=== PATIENT | female | born 2000 | race Caucasian/White ===

== ENCOUNTER 2023-01-21 12:17 | Emergency (ER) | payer OTHER, SELFPAY ==
--- NOTE | 2023-01-21 12:27 | ED_ITS ---
HPI - General Adult General Chief complaint: Psychiatric Symptoms Stated complaint: Crisis Time Seen by Provider: 01/21/23 13:00 Source: patient Mode of arrival: ambulatory History of Present Illness HPI narrative: 22-year-old female who presents with feelings of being overwhelmed, stating that she is very depressed is been on Cymbalta since approximately and has recently completed her college degree and was working in psychology and then began feeling worse. Patient has significant concerns regarding titration off of Cymbalta and restarting another medication, she does suffer from anxiety as well. Related Data Home Medications Medication Instructions Recorded Confirmed duloxetine 20 mg capsule,delayed 20 mg PO DAILY 01/21/23 01/21/23 release Allergies Allergy/AdvReac Type Severity Reaction Status Date / Time No Known Allergies Allergy Verified 01/21/23 12:30 Review of Systems Review of Systems: Pertinent positives and negatives as stated in HPI PMFSH Past Medical History Source: nursing notes reviewed Social History Social History Advance Directives: No Advance Directives Information Provided: No Physical Exam ED Vital Signs: Vital Signs - 24 hr 01/21/23 12:31 Temperature 98 F Pulse Rate 84 Respiratory Rate 20 Blood Pressure 136/83 Pulse Oximetry 98 Oxygen Delivery Method Room Air BMI result Body Mass Index 31.7 VITAL SIGNS: Reviewed. GENERAL: Well developed, well nourished, in no acute distress. HEAD: Normocephalic/atraumatic EYES: PERRLA, EOMI EARS: Ext canals without abnormality NOSE: Nares patent bilateral OROPHARYNX: no oral lesions noted, posterior pharynx clear NECK: Supple, no adenopathy LUNGS: Normal breath sounds. No adventitious sounds or accessory muscle use. SpO2<98> CARDIOVASCULAR: Regular rate and rhythm without noted murmurs ABDOMEN: Soft, non-tender, non-distended with bowel sounds. MUSCULOSKELETAL: No tenderness, deformities, or effusions noted on gross inspection. EXTREMITIES: No cyanosis, clubbing or edema. SKIN: Inspection of the skin reveals no rashes NEUROLOGIC: Alert and oriented x 4. Strength and sensation to light touch were grossly intact x 4, cranial nerves 2-12 PSYCH: Tearful, depressed affect. Course Course Course Narrative: This is an RME: Additional HPI, ROS, PE not included below will be deferred to primary provider. 22 year old female reports one month of feeling hopeless that began after starting a new job. She reports self harm. No homicidal ideations. Follows regularly with a therapist and provider. Takes cymbalta as prescribed. Plan: labs, urine Reevaluation(s) Reevaluation #1: Respite bed has been found and patient will be discharged at 20:00. Time: 19:28 Medications Administered Discontinued Medications Generic Name Dose Route Start Last Admin Trade Name Salvador PRN Reason Stop Dose Admin Hydroxyzine HCl 25 mg 01/21/23 14:15 01/21/23 15:01 Hydroxyzine Hcl 25 Mg Tablet PO 01/21/23 14:16 25 mg ONCE ONE Administration Nicotine 7 mg 01/21/23 14:08 01/21/23 15:01 Nicotine 7 Mg Patch.Td24 TRANSDERMA 01/21/23 14:09 7 mg ONCE ONE Administration Medical Decision Making Medical Decision Making [facility] Narrative: 22-year-old female with history and clinical presentation most consistent with acute on chronic exacerbation of underlying anxiety and depression with feelings of being overwhelmed. Patient is otherwise medically cleared and I have fully reviewed all investigations which do not demonstrate any systemic infection is there is no leukocytosis or left shift, no anemia or thrombocytopenia. Chemistry indices are negative for electrolyte or liver enzyme abnormalities, there is no KLEVER. Urinalysis is negative for UTI or hematuria, urine test is negative, toxicology is positive for endorsed use of marijuana for her chronic condition of interstitial cystitis. Care team has evaluated the patient determined that patient is safe for discharge to a respite bed. Patient is aware of all results and the plan for respite bed placement. Patient placed in physician observation because the patient needed more time for placement in a respite bed. At the time observation was started the patient's vital signs were stable, patient is alert and oriented, neuro: Nonfocal, CV RRR, lungs clear Differential Diagnosis Differential Diagnoses: The differential diagnosis associated with the presentation includes Please see the discussion above Admission/Observation Consideration of admission/observation: Escalation of care including admission/ observation considered Please see the discussion above Consult Healthcare Provider Management of the patient was discussed with: Supervisor Fishing Please see the discussion above Lab Data [facility] Lab Attestation statement: I reviewed the patient's lab results. Please see the discussion above 01/21/23 13:03 01/21/23 13:03 Labs: Lab Results 01/21/23 01/21/23 01/21/23 Range/Units 12:51 12:51 12:51 WBC (4.8-10.8) X10*3/uL RBC (4.20-5.50) X10*6/uL Hgb (12.0-16.0) g/dl Hct (37.0-47.0) % MCV (80.0-98.0) fL MCH (27.0-33.0) pg MCHC (31.0-35.0) g/dl RDW (11.0-16.0) % Plt Count (160-400) X10*3/uL MPV (9.4-12.3) fL Immature Gran % (Auto) (0.0-0.4) % Neut % (Auto) (45-73) % Lymph % (Auto) (20-40) % Caswell % (Auto) (2-11) % Eos % (Auto) (0-4) % Baso % (Auto) (0-2) % Lymph # (Auto) (1.2-4.9) X10*3/uL Caswell # (Auto) (0.1-1.2) X10*3/uL Eos # (Auto) (0.0-0.4) X10*3/uL Baso # (Auto) (0.0-0.2) X10*3/uL Abs Immat Gran (auto) (0.00-0.03) X10*3/uL Absolute Neuts (auto) (2.0-8.3) x10*3/uL Absolute Nucleated RBC (0.0-0.012) X10*3/uL Nucleated RBC % (auto) (0.0-0.2) /100WBC Sodium (135-145) mmol/L Potassium (3.3-5.1) mmol/L Chloride (96-108) mmol/L Carbon Dioxide (22-29) mmol/L Anion Gap (12-20) BUN (9-16) mg/dL Creatinine (0.5-1.4) mg/dL Estim Creat Clear Calc Estimated GFR Random Glucose (60-115) mg/dL Calcium (8.4-10.2) mg/dL Magnesium (1.6-2.6) mg/dL Total Bilirubin (0.0-1.0) mg/dL AST (5-31) U/L ALT (0-31) U/L Alkaline Phosphatase (39-117) U/L Total Protein (6.5-8.0) g/dL Albumin (3.5-5.0) g/dL Urine Color Yellow Urine Appearance Clear Urine pH 7.5 (5.0-9.0) Ur Specific [place] <= 1.005 (1.005-1.025) Urine Protein Negative (Neg-Trace) mg/dL Urine Glucose (UA) Negative (Negative) mg/dL Urine Ketones Negative (Negative) mg/dL Urine Blood Negative (Negative) Urine Nitrite Negative (Negative) Ur Leukocyte Esterase Negative (Negative) Urine Test NEGATIVE (NEGATIVE) Salicylates (15-30) mg/dL Urine Opiates Screen Not Detected (Not Detect) Urine Fentanyl Screen Not Detected (Not Detect) Acetaminophen (<30) mcg/mL Ur Barbiturates Screen Not Detected (Not Detect) Ur Phencyclidine Scrn Not Detected (Not Detect) Ur Amphetamines Screen Not Detected (Not Detect) U Benzodiazepines Scrn Not Detected (Not Detect) Urine Cocaine Screen Not Detected (Not Detect) U Marijuana (THC) Screen POSITIVE H (Not Detect) Ethyl Alcohol mg/dL 01/21/23 01/21/23 01/21/23 Range/Units 13:03 13:03 13:03 WBC 8.6 (4.8-10.8) X10*3/uL RBC 4.78 (4.20-5.50) X10*6/uL Hgb 13.7 (12.0-16.0) g/dl Hct 41.4 (37.0-47.0) % MCV 86.6 (80.0-98.0) fL MCH 28.7 (27.0-33.0) pg MCHC 33.1 (31.0-35.0) g/dl RDW 11.9 (11.0-16.0) % Plt Count 234 (160-400) X10*3/uL MPV 11.5 (9.4-12.3) fL Immature Gran % (Auto) 0.7 H (0.0-0.4) % Neut % (Auto) 68.8 (45-73) % Lymph % (Auto) 22.7 (20-40) % Caswell % (Auto) 6.1 (2-11) % Eos % (Auto) 1.2 (0-4) % Baso % (Auto) 0.5 (0-2) % Lymph # (Auto) 2.0 (1.2-4.9) X10*3/uL Caswell # (Auto) 0.5 (0.1-1.2) X10*3/uL Eos # (Auto) 0.1 (0.0-0.4) X10*3/uL Baso # (Auto) 0.0 (0.0-0.2) X10*3/uL Abs Immat Gran (auto) 0.06 H (0.00-0.03) X10*3/uL Absolute Neuts (auto) 5.9 (2.0-8.3) x10*3/uL Absolute Nucleated RBC 0.000 (0.0-0.012) X10*3/uL Nucleated RBC % (auto) 0.0 (0.0-0.2) /100WBC Sodium 139 (135-145) mmol/L Potassium 4.0 (3.3-5.1) mmol/L Chloride 109 H (96-108) mmol/L Carbon Dioxide 23 (22-29) mmol/L Anion Gap 11 L (12-20) BUN 7 L (9-16) mg/dL Creatinine 0.65 (0.5-1.4) mg/dL Estim Creat Clear Calc 125.7 Estimated GFR > 60 Random Glucose 95 (60-115) mg/dL Calcium 10.0 (8.4-10.2) mg/dL Magnesium 1.9 (1.6-2.6) mg/dL Total Bilirubin 0.4 (0.0-1.0) mg/dL AST 15 (5-31) U/L ALT 12 (0-31) U/L Alkaline Phosphatase 61 (39-117) U/L Total Protein 7.3 (6.5-8.0) g/dL Albumin 4.5 (3.5-5.0) g/dL Urine Color Urine Appearance Urine pH (5.0-9.0) Ur Specific [place] (1.005-1.025) Urine Protein (Neg-Trace) mg/dL Urine Glucose (UA) (Negative) mg/dL Urine Ketones (Negative) mg/dL Urine Blood (Negative) Urine Nitrite (Negative) Ur Leukocyte Esterase (Negative) Urine Test (NEGATIVE) Salicylates < 5.0 L (15-30) mg/dL Urine Opiates Screen (Not Detect) Urine Fentanyl Screen (Not Detect) Acetaminophen < 17 (<30) mcg/mL Ur Barbiturates Screen (Not Detect) Ur Phencyclidine Scrn (Not Detect) Ur Amphetamines Screen (Not Detect) U Benzodiazepines Scrn (Not Detect) Urine Cocaine Screen (Not Detect) U Marijuana (THC) Screen (Not Detect) Ethyl Alcohol < 10 mg/dL External Record Review External record reviewed: Outpatient record and Prior outpatient labs Discharge Plan Discharge Clinical Impression: Depression, Anxiety Patient Disposition: Xfer to Respite Facility Instructions: Anxiety (ED), Depression (ED) Additional Instructions: 1. Resume all home medications as prescribed. Return to the ER for any worsening symptoms. Prescriptions: No Action duloxetine 20 mg Capsule,Delayed Release(Dr/Ec) 20 mg PO DAILY Interventions: [place]-Suicide Risk Severity Scale Last Done: 01/21/23 16:23
[2023-01-21 12:31] VITALS: BP 136/83; PULSE 84; RESP 20; TEMP 36.6; O2SAT 98; BMI 31.7
[2023-01-21 13:02] LABS: Appearance Urine Clear; Color Urine Yellow; Glucose Urine UA Negative (Negative); Leukocyte Esterase Urine Negative (Negative); Nitrite Urine Negative (Negative); PH 7.5 (5.0-9.0); Specific Gravity - Urine <= 1.005 (1.005-1.025); Urine Blood Negative (Negative); Urine Ketones Negative (Negative); Urine Protein Negative (Neg-Trace)
[2023-01-21 13:03] LABS: UPreg QC Valid YES; Urine Pregnancy NEGATIVE (NEGATIVE)
[2023-01-21 13:09] LABS: MANUAL DIFF FLAG NO
[2023-01-21 13:10] LABS: Amphetamine Screen Urine Not Detected (Not Detect); Barbiturates, Urine Not Detected (Not Detect); Benzodiazepines Screen Urine Not Detected (Not Detect); Cannabinoid Screen Urine POSITIVE (Not Detect); Cocaine Screen Urine Not Detected (Not Detect); Fentanyl, urine Not Detected (Not Detect); Opiate Screen Urine Not Detected (Not Detect); Phencyclidine Screen Urine Not Detected (Not Detect)
[2023-01-21 13:17] LABS: Basophils Percent Auto 0.5 % (0-2); Eosinophils Absolute Auto 0.1 X10*3/uL (0.0-0.4); Eosinophils Percent Auto 1.2 % (0-4); Hematocrit 41.4 % (37.0-47.0); Hemoglobin 13.7 g/dl (12.0-16.0); Imm Gran Abs Auto 0.06 X10*3/uL (0.00-0.03); Imm Gran Pct Auto 0.7 % (0.0-0.4); Lymphocytes Percent Auto 22.7 % (20-40); Mean Corpuscular HGB Conc 33.1 g/dl (31.0-35.0); Mean Corpuscular Hemoglobin 28.7 pg (27.0-33.0); Mean Corpuscular Volume 86.6 fL (80.0-98.0); Mean Platelet Volume 11.5 fL (9.4-12.3); Monocytes Absolute Auto 0.5 X10*3/uL (0.1-1.2); Monocytes Percent Auto 6.1 % (2-11); Neutrophils Absolute Auto 5.9 x10*3/uL (2.0-8.3); Neutrophils Percent Auto 68.8 % (45-73); Platelet Count 234 X10*3/uL (160-400); Red Blood Count 4.78 X10*6/uL (4.20-5.50); Red Cell Distribution Width 11.9 % (11.0-16.0); White Blood Count 8.6 X10*3/uL (4.8-10.8)
[2023-01-21 13:26] LABS: Alanine Aminotransferase 12 U/L (0-31); Albumin Level 4.5 g/dL (3.5-5.0); Alkaline Phosphatase 61 U/L (39-117); Anion Gap 11 (12-20); Aspartate Amino Transferase 15 U/L (5-31); Bilirubin Total 0.4 mg/dL (0.0-1.0); Blood Urea Nitrogen 7 mg/dL (9-16); Carbon Dioxide 23 mmol/L (22-29); Chloride 109 mmol/L (96-108); Creatinine Clr Calc Pharmacy 125.7; Estimated Glomerular Filt Rate > 60; Ethanol < 10 mg/dL; Glucose Random 95 mg/dL (60-115); Magnesium 1.9 mg/dL (1.6-2.6); Sodium 139 mmol/L (135-145); Total Protein 7.3 g/dL (6.5-8.0)
[2023-01-21 13:56] LABS: Acetaminophen LAB < 17 mcg/mL (<30); Salicylate < 5.0 mg/dL (15-30)
--- OUTSIDE RECORDS SUMMARY | 2023-01-21 14:09 | XMS_ITS | Continuity of Care Document ---
Author Name Unknown Organization [facility] ter Address [address] [place] [id number] Care Team Providers Care Manager English Name Role Phone Madelin MCFARLANE, Roselia Quesada Primary Care Physician [place] [facility] [place]05[place] - 11/05/[address] [address]- [facility] Encounter Diagnosis Abdominal pain(Final) - 11/05/19 Discharge Disposition: A-D/C Home Attending Physician: Tiffany Escobar MD Admitting Physician: Tiffany Escobar MD Referring Physician: Not on Staff, Referring MD Allergies, Adverse Reactions, Alerts Substance Reaction Severity Status Benadryl Palpitations Persistent Mild Active Medications Flagyl 500 mg oral tablet 1 tablet = 500 mg, By Mouth, Every 12 hours, for 7 days, # 14 tablet, 0 Refills, Acute 11/12/19 4:06:00 EDT, 11/05/19 4:06:00 EDT, Tablet, [id number] Start Date: 11/05/19 Stop Date: 11/12/19 Status: Ordered Flonase 1 sprays, Daily, 0 Refills, Maintenance, 05/02/16 21:35:33 Start Date: 05/02/16 Status: Ordered ibuprofen 400 mg oral tablet 400 mg, 1, tablet, By Mouth, Every 6 hours, PRN, # 30 tablet, Refills 0, Tot. Refills 0, Maintenance, Headache, 02/23/16 22:35:51, Print Requisition Start Date: 02/23/16 Status: Ordered Zofran 4 mg oral tablet 1 tablet = 4 mg, By Mouth, Every 8 hours, PRN as needed for nausea/vomiting, # 10 tablet, 0 Refills, Maintenance, 11/05/19 4:05:00 EDT, Tablet, [id number] Start Date: 11/05/19 Status: Ordered Zofran 4 mg oral tablet 1 tablet = 4 mg, By Mouth, Every 8 hours, PRN as needed for nausea/vomiting, # 10 tablet, 0 Refills, Maintenance, 02/23/16 22:36:06, Tablet Start Date: 02/23/16 Status: Ordered Results Orders for Microbiology Reports Name Date Wet Prep 11/05/19 Microbiology Reports TEST:Wet Prep STATUS:Auth (Verified) BODY SITE: SOURCE:VAGINA COLLECTED DATE/TIME:11/05/19 3:45 AM Wet Prep SPECIMEN DESCRIPTION : VAGINAL SPECIMEN SPECIAL REQUESTS : NONE DIRECT EXAM : 2+ WHITE BLOOD CELLS NO TRICHOMONAS,YEAST,OR CLUE CELLS OBSERVED REPORT STATUS : FINAL 11/05/2019 Vital Signs Most recent to oldest [Reference Range]: 1 2 Oxygen Saturation [94-100 %] 99 % (11/05/19 4:33 AM) 100 % (11/05/19 1:46 AM) Pulse Rate [55-90 bpm] 80 bpm (11/05/19 4:33 AM) 94 bpm *H* (11/05/19 1:46 AM) Blood Pressure [90-138/55-84 mm Hg] 104/ 61mm Hg (11/05/19 4:33 AM) 130/69mm Hg (11/05/19 1:46 AM) Respiratory Rate [16-30 br/min] 18 br/mi n (11/05/19 4:33 AM) 18 br/min (11/05/19 1:46 AM) Temperature [96.8-100.4 DegF] 98.2 DegF (11/05/19 4:33 AM) 98.6 DegF (11/05/19 1:46 AM) Mode of Delivery (Oxygen) Room air (11/05/19 4:33 AM) Room air (11/05/19 1:46 AM) Blood pressure sites Arm, left (11/05/19 4:33 AM) Arm, right (11/05/19 1:46 AM) Temperature Route Oral (11/05/19 4:33 AM) Oral (11/05/19 1:46 AM) Social History Social History Type Response Smoking Status Never smoker entered on: 05/02/16 Sex
--- OUTSIDE RECORDS SUMMARY | 2023-01-21 14:09 | XMS_ITS | Continuity of Care Document ---
Author Name Unknown Organization [facility] ter Address [address] [place] [id number]- Care Team Providers Care Punch Box Tender Name Role Phone Madelin MCFARLANE, Roselia Quesada Primary Care Physician [phone] Encounter [facility] [place] Date(s): 08/02/19 - 08/02/[address] [address]- [facility] Encounter Diagnosis Mononucleosis(Final) - 08/02/19 Discharge Disposition: A-D/C Home Attending Physician: Malgorzata Bailey MD Admitting Physician: Malgorzata Bailey MD Referring Physician: Not on Staff, Referring MD Allergies, Adverse Reactions, Alerts Substance Reaction Severity Status Benadryl Palpitations Persistent Mild Active Medications Flonase 1 sprays, Daily, 0 Refills, Maintenance, [...] Results Orders for Microbiology Reports Name Date Group A Strep Screen and Culture 08/02/19 Microbiology Reports TEST:Group A Strep Screen and Culture STATUS:Unauthenticated BODY SITE: SOURCE:THROAT COLLECTED DATE/TIME:08/02/19 5:16 PM Group A Strep Screen and Culture SPECIMEN DESCRIPTION : THROAT SWAB SPECIAL REQUESTS : NONE DIRECT EXAM : RAPID GROUP A RESULT IS NEGATIVE, REFER TO CULTURE RESULT. REPORT STATUS : PRELIMINARY REPORT Radiology Reports * Exam Date Time Procedure Performing Provider Status 08/02/19 4:58 PM Chest 2 Views Frontal and Lat Galdino Gutierrez; Auth (Verified) Notes: (Chest 2 Views Frontal and Lat) Reason For Exam: Shortness of Breath, Fever;Other: RESULT: Chest 2 Views Frontal and Lat Chest 2 Views Frontal and Lat 1 Refer to EMR; Reason: Other:; Shortness of Breath, Fever; Clinical Question(s): Pneumonia; Hx of Present Illness: PT reports sore throat on saturday, went to urgent care, diagnosed with sore throat, RX'd amoxicillin. Now reports post nasal drip, productive cough, yellow clear phlegm, I feel like i cant take a deep breath and it hurts to . Denies fevers or chills.; Other Objective Findings: CA Ox4. COMPARISON: X-ray from 03/30/2019. FINDINGS: LINES AND TUBES: None. LUNGS AND PLEURA: Clear lungs. Normal pulmonary vascularity. No pleural effusion. No pneumothorax. HEART, MEDIASTINUM AND ANNABEL: Heart is normal in size. Normal mediastinal and hilar contour. BONES AND SOFT TISSUES: No acute abnormality. IMPRESSION: No acute abnormality. WSN: [id number] Ordering Physician: Maurizio Wilkins Dictated By: Stevo Godfrey MD Dictated Date/Time: 08/02/19 5:13 pm Reviewed By: Stevo Godfrey MD Signed By: Stevo Godfrey MD Signed Date/Time: 08/02/19 5:13 pm Transcribed By: BROCK Transcribed Date/Time: 08/02/19 5:13 pm Vital Signs Most recent to oldest [Reference Range]: 1 2 3 Oxygen Saturation [94-100 %] 98 % (08/02/19 8:40 PM) 100 % (08/02/19 3:27 PM) 99 % (08/02/19 3:24 PM) Pulse Rate [55-90 bpm] 93 bpm *H* (08/02/19 8:40 PM) 94 bpm *H* (08/02/19 3:27 PM) 106 bpm *H* (08/02/19 3:24 PM) Blood Pressure [90-138/55-84 mm Hg] 116/61mm Hg (08/02/19 8:40 PM) 133/64mm Hg (08/02/19 3:27 PM) Respiratory Rate [16-30 br/min] 18 br/min (08/02/19 8:40 PM) 18 br/min (08/02/19 3:27 PM) Temperature [96.8-100.4 DegF] 98.2 DegF (08/02/19 8:40 PM) 98.6 DegF (08/02/19 3:27 PM) Mode of Delivery (Oxygen) Room air (08/02/19 8:40 PM) Room air (08/02/19 3:27 PM) Room air (08/02/19 3:24 PM) Blood pressure sites Arm, right (08/02/19 8:40 PM) Arm, left (08/02/19 3:27 PM) Temperature Route Oral (08/02/19 8:40 PM) Oral (08/02/19 3:27 PM) Social History Social History Type Response Smoking Status Never smoker entered on: 05/02/16 Sex
[2023-01-21] MEDS: hydrOXYzine HCL 25 MG TABLET PO (15:01)
[2023-01-21] MEDS: Nicotine 7 MG PATCH.TD24 TRANSDERMA (15:01)
--- NOTE | 2023-01-21 16:32 | PC.NURSE ---
patient sitting in room, has remained calm and cooperative, will engage with staff.
--- NOTE | 2023-01-21 17:33 | PC.NURSE ---
patient has visitor
== END 2023-01-21 19:39 | disposition home or self-care (01) ==
PROVIDERS: Physician Assistant; Emergency Provider Student in an Organized Health Care Education/Training Program
DX: F32.A Depression, unspecified (principal); F41.8 Other specified anxiety disorders; Z79.899 Other long term (current) drug therapy; F12.90 Cannabis use, unspecified, uncomplicated
CPT/HCPCS: 36415; 80053; 80143; 80179; 80307; 81003; 81025; 83735; 85025; 99284; S9485